=== PATIENT | female | born 1950 | race Caucasian/White ===

== ENCOUNTER → 2017-09-09 11:50 | Outpatient (CLI) | payer MEDICARE, OTHER, SELFPAY ==
[2017-09-09 12:45] LABS: BUN Creatinine Ratio 21.4 (6-22); Blood Urea Nitrogen 15 mg/dL (7-17); Calcium 9.7 mg/dL (8.4-10.2); Carbon Dioxide 28 mmol/L (22-32); Chloride 102 mmol/L (98-107); Estimated Glomerular Filt Rate > 60.0 mL/min (>60); Glucose 97 mg/dL (80-110); HEMOLYSIS < 15 (0-50); Potassium 4.1 mmol/L (3.4-5.1); Sodium 140 mmol/L (137-145)
[2017-09-09 15:59] LABS: Creatinine Urine Random 10.5 mg/dL
[2017-09-09 16:10] LABS: Microalbumi Creatinin Ratio Ur 57.1 ug/mg CR (<30); Microalbumin Urine Random < 0.6 mg/dL (0-1.6)
== END ==
PROVIDERS: PCP Physician Assistant; Visit Provider Physician Assistant
DX: I10 Essential (primary) hypertension (principal)
CPT/HCPCS: 36415; 80048; 82043; 82570

== ENCOUNTER → 2018-01-13 16:01 | Outpatient (CLI) | payer MEDICARE, OTHER, SELFPAY ==
--- NOTE | 2018-01-13 16:04 | DI.RAD.S_ITS ---
PROCEDURE: XR CHEST 2V INDICATIONS: left sided flank pain TECHNIQUE: 2 views of the chest were acquired. COMPARISON: [facility], , CHEST 2 VIEW, 08/12/2016, 17:37. FINDINGS: Surgical changes and devices: None. Lungs and pleura: No pleural effusions or pneumothorax. Lungs are clear. Mediastinum: Mediastinal contours are normal. Heart size is normal. Aortic calcification consistent with atherosclerosis. Bones and chest wall: No suspicious bony abnormalities. Soft tissues appear unremarkable. IMPRESSION: No acute cardiopulmonary disease. Dictated by: Connie Richardson M.D. on 01/13/2018 at 16:50 Approved by: Connie Richardson M.D. on 01/13/2018 at 16:51
== END ==
PROVIDERS: PCP Physician Assistant; Visit Provider Physician Assistant
DX: R10.9 Unspecified abdominal pain (principal)
CPT/HCPCS: 71046

== ENCOUNTER → 2018-02-24 14:00 | Outpatient (CLI) | payer MEDICARE, OTHER, SELFPAY ==
--- NOTE | 2018-02-24 14:01 | DI.RAD.S_ITS ---
PROCEDURE: FL BARIUM SWALLOW INDICATIONS: Chest pain - possible hiatal hernia vs esophageal spasm COMPARISON: None. FINDINGS: Function: There is mild esophageal dysmotility. No elicited gastroesophageal reflux. Morphology: Air-contrast images demonstrate normal mucosal morphology. Single contrast views show no esophageal strictures, extrinsic mass effects, or diverticula. Limited images of the stomach demonstrate normal appearance. IMPRESSION: Esophageal dysmotility. No hiatal hernia identified. Dictated by: Andres Kaba M.D. on 02/24/2018 at 14:53 Approved by: Andres Kaba M.D. on 02/24/2018 at 14:54
== END ==
PROVIDERS: PCP Physician Assistant; Visit Provider Physician Assistant
DX: R07.9 Chest pain, unspecified (principal); K22.4 Dyskinesia of esophagus
CPT/HCPCS: 74220

== ENCOUNTER 2018-04-01 08:54 | Day surgery (SDC) | payer MEDICARE, OTHER, SELFPAY ==
--- NOTE | 2018-04-01 | PATH_ITS ---
[facility] Accession Number: [id number] . 01 Material submitted: . BIOPSY AT 15CM . 02 Diagnosis: Biopsy at 15 cm: Portions of tubular adenoma; negative for high-grade dysplasia. [facility]/04/02/2018 . 02 Electronically signed: . Starla Stevenson MD, Pathologist NPI- [id number] . 01 Gross description: . BIOPSY AT 15CM: Received in formalin are multiple fragment(s) of zhou, soft tissue measuring 0.3 x 0.2 x 0.1 cm in aggregate submitted entirely in 1 cassette(s) /CKI /CKI . 02 Pathologist provided ICD-10: K63.5 . 02 CPT . 339503 Performed at: 01 [facility] [address] [facility], [place], [place] [id number] MD Ziyad Lucas MD Phone: [phone] Performed at: 02 [facility] [address] [place], [place] [id number] MD Kiersten Khalil MD Phone: [phone]
[2018-04-01 09:23] VITALS: BP 118/72; PULSE 64; RESP 16; TEMP 37; O2SAT 100; BMI 22.8
[2018-04-01] MEDS: SODIUM CHLORIDE 0.9% 1,000 ML 200 ML IV (10:00)
--- NOTE | 2018-04-01 10:40 | PM.HP.1 ---
History of Present Illness Date Patient Seen: 04/01/18 Time Patient Seen: 10:41 Chief complaint: 10394 SCREENING COLONOSCOPY Patient History Medical History Benign essential hypertension (Chronic) Anxiety (Chronic Unknown) Depression (Chronic Unknown) Hypertension (Chronic Unknown) Sleep difficulties (Chronic Unknown) Diverticular disease (Suspected Unknown) Surgical History Hx of foot surgery (Resolved 1968) Status post tubal ligation Family & Social History Family History: Reviewed 04/01/18 by Kirill Carter MD Tobacco & Substance use: Smoking Status Current every day smoker alcohol intake current Meds Home Medications Medication Instructions Recorded Confirmed Type lisinopril 20 mg tablet 20 mg PO QDAY #90 tab 09/04/17 04/01/18 Rx bupropion HCl SR 150 mg tablet,12 150 mg PO BID #180 tab 12/23/17 04/01/18 Rx hr sustained-release metoprolol succinate ER 50 mg 50 mg PO DAILY #30 tab 02/04/18 04/01/18 Rx tablet,extended release 24 hr varicella-zoster glycoE [id number] 0.5 ml IM ONCE #1 each 02/04/18 04/01/18 Rx adj(PF) 50 mcg/0.5 mL IM susp, kit clonazepam 0.5 mg tablet See Label Instructions PO HSP PRN 02/06/18 04/01/18 Rx #60 tab eszopiclone 2 mg tablet 2 mg PO BEDTIME #30 tab 03/31/18 04/01/18 Rx Allergies Allergy/AdvReac Type Severity Reaction Status Date / Time milk [MILK] Allergy Severe FACIAL Verified 04/01/18 09:40 SWELLING & MY SKIN PEELED OFF MY EYELIDS. cephalexin [From KEFLEX] AdvReac Mild ITCHING Verified 04/01/18 09:40 ALL OVER NUT TREE Allergy Severe FACIAL Uncoded 04/01/18 09:40 AND THROAT SWELLING & SKIN PEELED OFF MY EYELIDS Review of Systems Review of Systems All systems reviewed & are unremarkable except as noted in HPI and below Cardiovascular Comments: Had chest pain about a year and a half ago but never really got evaluated from her history. She may have a heart murmur. Exam Vital Signs (past 8 hours): - 04/01/18 09:23 Temperature 98.6 F Pulse Rate 64 Respiratory Rate 16 Blood Pressure 118/72 Pulse Oximetry 100 Oxygen Delivery Method Room Air Narrative Exam Narrative: Co Operative no apparent distress. Eyes are nonicteric. Lungs are clear to auscultation. Heart regular rate and rhythm without murmur gallop. Abdomen is soft scaphoid nontender without mass. The patient is alert and oriented. Assessment & Plan Plan: Assessment/Plan Narrative: Patient for screening colonoscopy. I have discussed the procedure and the rationale with the patient including risks of bleeding, perforation which would necessitate a major operation, failure to find remove all lesions and the potential to tattoo. They appeared to understand and wished to proceed.
--- NOTE | 2018-04-01 10:43 | PM.PREOP ---
Pre-operative Note Interval Note History & Physical reviewed/Exam performed by Physician: Yes Changes to H&P: No ASA Class (for procedural sedation): II
[2018-04-01] MEDS: fentaNYL 250 MCG/5 ML INJ IV (11:11)
[2018-04-01] MEDS: MIDAZOLAM 5 MG/5 ML VIAL IV (11:11)
[2018-04-01 11:43] VITALS: BP 89/55; PULSE 58; RESP 15; TEMP 36.8; O2SAT 96
[2018-04-01 11:48] VITALS: BP 108/60; PULSE 58; RESP 16; O2SAT 97
--- NOTE | 2018-04-01 11:52 | PM.OP.ENDO ---
Operative Date/Time/Diagnoses Date of procedure: 04/01/18 Time of procedure: 11:52 Pre-op diagnosis: Screening examination. This is her 1st colonoscopy. She is 67. Post-op diagnosis: other (Diverticulosis of the sigmoid colon. One very small polyp like lesion removed at 20 cm.) Procedure & Clinicians Study performed: Colonoscopy with cold biopsy Same procedure as scheduled: Yes Indications: Screening Surgeon: Kirill Carter Procedure Notes SCOAP/Timeout: Done Procedure in detail: The patient was placed in the left lateral decubitus position and underwent IV sedation directed by the surgeon consisting of fentanyl and Versed. Digital exam was unremarkable. The scope was inserted and advanced through the rectum into the sigmoid, descending, transverse, and ascending colon. The patient was noted to have sigmoid diverticulosis. The cecum was reached identified by the ileocecal valve and the appendiceal opening. The scope was gradually brought out. A Polyp was found at 20 cm from the anal verge. This was a very small lesion. The scope ultimately was retroflexed in the rectum. The appearance was normal. The scope was removed and the patient tolerated the procedure well Scope withdrawal time: 12.75 min Sedation minutes: 26 Findings: diverticulosis (Sigmoid) Specimen(s): none sent (Small polyp) Complications: none Recommendations: Colonscopy in 5 years (Unless this polyp is not neoplastic. In that case 10 years would be more appropriate.) Follow up: as needed Disposition: same day surgery
[2018-04-01 12:00] VITALS: BP 107/76; PULSE 60; RESP 20; TEMP 36.6; O2SAT 93
== END 2018-04-01 12:35 | disposition home or self-care (01) ==
PROVIDERS: PCP Physician Assistant; Visit Provider Specialist
PROC: 0DJD8ZZ Inspection of Lower Intestinal Tract, Via Natural or Artificial Opening Endoscopic (ICD-10-PCS; CPT 45378; principal; 2018-04-01 09:45)
DX: Z12.11 Encounter for screening for malignant neoplasm of colon (principal); K57.30 Diverticulosis of large intestine without perforation or abscess without bleeding; I10 Essential (primary) hypertension; F41.9 Anxiety disorder, unspecified; F33.41 Major depressive disorder, recurrent, in partial remission; F17.210 Nicotine dependence, cigarettes, uncomplicated; K63.5 Polyp of colon
CPT/HCPCS: 45380; 88305; 99152; 99153; J2250; J3010

== ENCOUNTER → 2018-04-09 14:33 | Outpatient (CLI) | payer MEDICARE, OTHER, SELFPAY ==
[2018-04-09 15:39] LABS: Alanine Aminotransferase 31 IU/L (9-52); Albumin 4.7 g/dL (3.5-5.0); Albumin Globulin Ratio 1.7 (1.0-2.8); Alkaline Phosphatase 60 U/L (38-126); Aspartate Aminotransferase 27 IU/L (14-36); BUN Creatinine Ratio 15.7 (6-22); Bilirubin Total 0.3 mg/dL (0.2-1.3); Blood Urea Nitrogen 11 mg/dL (7-17); Calcium 10.2 mg/dL (8.4-10.2); Carbon Dioxide 34 mmol/L (22-32); Chloride 99 mmol/L (98-107); Estimated Glomerular Filt Rate > 60.0 mL/min (>60); Globulin 2.7 g/dL (1.7-4.1); Glucose 92 mg/dL (80-110); HEMOLYSIS < 15 (0-50); Potassium 5.2 mmol/L (3.4-5.1); Sodium 141 mmol/L (137-145); Total Protein 7.4 g/dL (6.3-8.2)
[2018-04-09 17:27] LABS: Creatinine Urine Random 56.4 mg/dL
[2018-04-09 17:35] LABS: Microalbumi Creatinin Ratio Ur 10.6 ug/mg CR (<30); Microalbumin Urine Random < 0.6 mg/dL (0-1.6)
== END ==
PROVIDERS: PCP Physician Assistant; Visit Provider Physician Assistant
DX: I10 Essential (primary) hypertension (principal)
CPT/HCPCS: 36415; 80053; 82043; 82570

== ENCOUNTER → 2018-05-23 14:10 | Outpatient (CLI) | payer MEDICARE, OTHER, SELFPAY ==
--- NOTE | 2018-05-23 | DI.MG.S_ITS ---
BILATERAL DIGITAL SCREENING MAMMOGRAM 3D/2D WITH CAD: 05/23/2018 CLINICAL: Routine screening. No prior exams were available for comparison. There are scattered fibroglandular elements in both breasts. Current study was also evaluated with a Computer Aided Detection (CAD) system. No significant masses, calcifications, or other findings are seen in either breast. IMPRESSION: NEGATIVE There is no mammographic evidence of malignancy. A 1 year screening mammogram is recommended. This exam was interpreted at Station ID: [id number]. NOTE: For mammograms, a report in lay terms will be sent to the patient. Approximately 15% of breast malignancies will not be visualized mammographically. In the management of a palpable breast mass, a negative mammogram must not discourage biopsy of a clinically suspicious lesion. Electronically Signed By: Marychuy davenport/linda:05/23/2018 16:55:29 letter sent: Normal Exam ACR BI-RADS Category 1: Negative [id number]
== END ==
PROVIDERS: PCP Physician Assistant; Visit Provider Physician Assistant
DX: Z12.31 Encounter for screening mammogram for malignant neoplasm of breast (principal)
CPT/HCPCS: 77063; 77067

== ENCOUNTER → 2018-09-04 09:59 | Outpatient (CLI) | payer MEDICARE, OTHER, SELFPAY ==
--- NOTE | 2018-09-04 | DI.US.S_ITS ---
PROCEDURE: US ABDOMEN COMPLETE INDICATIONS: BLOATING/ABDOMINAL DISCOMFORT TECHNIQUE: Real-time scanning was performed of the abdominal and retroperitoneal organs, with image documentation. COMPARISON: [facility], CT, ABDOMEN/PELVIS WITH CONTRAST, 08/21/2016, 10:05. FINDINGS: Liver: Liver is normal in size and homogeneous in echotexture. Gallbladder: No gallstones. No gallbladder wall thickening, pericholecystic fluid or sonographic Downs's sign. Biliary ducts: Intrahepatic bile ducts are non-dilated. Extrahepatic bile duct caliber measures 5 mm. Normal is 6-7 mm or less in diameter, or 10 mm or less post-cholecystectomy. Pancreas: Visualized portions of the pancreas are sonographically normal. Spleen: Spleen is normal in size and homogeneous in echotexture. Kidneys: Kidneys are normal in size and echotexture. Right kidney measures 9.7 cm long. Per scanning technologist, left kidney is normal. Left kidney image and measurement were lost. No hydronephrosis or nephrolithiasis the right kidney. No solid masses. Aorta: Visualized aorta is normal in caliber at less than 3 cm. Iliacs: Proximal common iliac arteries are normal in caliber at less than 2.5 cm. IVC: Intrahepatic inferior vena cava is patent. Miscellaneous: No free abdominal fluid. IMPRESSION: 1. Normal ultrasound exam. 2. Left renal images were lost, therefore, cannot be reviewed. Per technologist note, left kidney appears normal subjectively. If clinically indicated, a repeat left renal ultrasound can be obtained at no additional charge. Dictated by: Connie Richardson M.D. on 09/04/2018 at 16:48 Approved by: Connie Richardson M.D. on 09/04/2018 at 22:04
== END ==
PROVIDERS: PCP Physician Assistant; Visit Provider Physician Assistant
DX: R14.0 Abdominal distension (gaseous) (principal); R10.9 Unspecified abdominal pain
CPT/HCPCS: 76700